=== PATIENT | female | born 1975 ===

== ENCOUNTER 2017-03-25 19:46 | Observation (INO) | payer OTHER ==
[2017-03-25 19:54] VITALS: BP 161/93; PULSE 86; RESP 18; TEMP 97.9; O2SAT 99
[2017-03-25] MEDS ORDERED: Iohexol 240 (50 ml) PO ONE (20:18)
[2017-03-25] MEDS ORDERED: Sodium Chloride 0.9% 1,000 ML IV STA (20:20)
[2017-03-25] MEDS ORDERED: cefTRIAXone (Rocephin) 1 gm Inj IVPB ONE (20:21)
--- NOTE | 2017-03-25 20:23 | ED PDOC ---
HPI: Abdomen Time Seen by Provider: 03/25/17 20:21 Chief Complaint (Nursing): Abdominal Pain Chief Complaint (Provider): abdominal pain History Per: Patient (42 y/o female h/o DM/HTN/Rheumatoid arthritis here with lower abdominal pain radiating to back associated with dysuria x 5 days. Has had cipro x 4 days without improvement. Notes low grade temperature. H/o cxn and exploratory lap in past.) Past Medical History Reviewed: Historical Data, Nursing Documentation, Vital Signs Vital Signs: Last Vital Signs Temp 97.9 F 03/25/17 19:51 Pulse 86 03/25/17 19:51 Resp 18 03/25/17 19:51 BP 161/93 H 03/25/17 19:51 Pulse Ox 99 03/25/17 20:25 - Medical History PMH: Asthma, HTN - Family History Family History: States: Unknown Family Hx - Home Medications Home Medications: Ambulatory Orders Medication Instructions Recorded Dicyclomine [Bentyl] 20 mg PO Q6H PRN #20 tab 06/11/16 Famotidine [Pepcid] 20 mg PO BID #28 tab 06/11/16 - Allergies Allergies/Adverse Reactions: Allergies Allergy/AdvReac Type Severity Reaction Status Date / Time No Known Allergies Allergy Verified 06/11/16 13:59 Review of Systems ROS Statement: Except As Marked, All Systems Reviewed And Found Negative Gastrointestinal: Positive for: Abdominal Pain Physical Exam - Reviewed Nursing Documentation Reviewed: Yes Vital Signs Reviewed: Yes - Physical Exam Appears: Positive for: Well, Non-toxic, No Acute Distress Head Exam: Positive for: ATRAUMATIC, NORMAL INSPECTION, NORMOCEPHALIC Skin: Positive for: Normal Color, Warm, DRY Eye Exam: Positive for: EOMI, Normal appearance, PERRL ENT: Positive for: Normal ENT Inspection Neck: Positive for: Normal, Painless ROM Cardiovascular/Chest: Positive for: Regular Rate, Rhythm Respiratory: Positive for: CNT, Normal Breath Sounds Gastrointestinal/Abdominal: Positive for: Normal Exam, Bowel Sounds, Soft, Tenderness (tender ruq/luq/ lower abdomen.) Back: Positive for: Normal Inspection, L CVA Tenderness, R CVA Tenderness Extremity: Positive for: Normal ROM Neurologic/Psych: Positive for: Alert, Oriented - Laboratory Results Result Diagrams: 03/25/17 21:20 03/25/17 21:35 - ECG O2 Sat by Pulse Oximetry: 99 ED OBSERVATION Date of observation admission: 03/25/17 Time of observation admission: 20:20 - Observation admission statement Patient is being placed in observation because:: evaluation of abdominal pain - Goals of Observation Goals of observation are:: investigation of cause of abdominal pain treatment/improvement of abdominal pain - Progress Note Progress Note: 03/25/17 20:24 Morphine 4mg iv x 1 dose zofran 4 mg iv x 1 dose NS 1 liter wide open Rocephin 1 gm iv x 1 dose for presumptive pyelonephritis. Patient states her pmd has given her rx for CT abdomen/pelvis for evaluation of pain. Will prep for CT abd/pelvis 03/26/17 01:41 ct abd/pelvis: Lymph nodes: No enlarged lymph nodes. IMPRESSION: 1. 2 mm nonobstructing left renal stone. 2. Normal appendix. 3. 2.5 cm mildly dense right adnexal cyst, potentially a hemorrhagic cyst. Consider correlation with ultrasound if needed. 4. Hepatic steatosis and hepatomegaly. Thank you for allowing us to participate in the care of your patient. Dictated and Authenticated by: Zhang Rousseau MD Disposition - Clinical Impression Clinical Impression: Complicated UTI (urinary tract infection) - Patient ED Disposition Is Patient to be Admitted: No - Disposition Disposition: Routine/Home Disposition Time: 01:42 Condition: FAIR
[2017-03-25] MEDS ORDERED: Iohexol 240 (50 ml) ONE (21:03)
[2017-03-25] MEDS ORDERED: cefTRIAXone (Rocephin) 1 gm Inj ONE (21:04)
[2017-03-25 21:39] LABS: BASO % 0.5 % (0.0-2.0); EOS # 0.3 K/uL (0.0-0.7); HEMATOCRIT 37.1 % (34.0-47.0); LYMPH # 3.2 K/uL (1.0-4.3); LYMPH % 33.2 % (20.0-40.0); MEAN CELL VOLUME 73.7 fl (81.0-99.0); MEAN CORPUSCULAR HEMOGLOBIN 23.8 pg (27.0-31.0); MEAN CORPUSCULAR HGB CONC 32.3 g/dL (33.0-37.0); MONO # 0.6 K/uL (0.0-0.8); MONO % 5.8 % (0.0-10.0); NEUT # 5.5 K/uL (1.8-7.0); NEUT % 57.5 % (50.0-75.0); RED CELL DISTRIBUTION WIDTH 13.8 % (11.5-14.5); WHITE BLOOD COUNT 9.7 K/uL (4.8-10.8)
[2017-03-25 21:47] LABS: URINE BILIRUBIN NEGATIVE (NEGATIVE); URINE BLOOD SMALL (NEGATIVE); URINE COLOR AMBER (YELLOW); URINE GLUCOSE (UA) NEG (Normal); URINE KETONE NEGATIVE (NEGATIVE); URINE LEUKOCYTE ESTERASE TRACE Leu/uL (Negative); URINE PROTEIN NEGATIVE (NEGATIVE); URINE UROBILINOGEN 0.2-1.0 mg/dL (0.2-1.0)
[2017-03-25 21:51] LABS: ALB/GLOB RATIO 1.4 (1.0-2.1); ALKALINE PHOSPHATASE 81 U/L (38-126); ALT/SGPT 47 U/L (9-52); AST/SGOT 37 U/L (14-36); BILIRUBIN,TOTAL 0.6 mg/dl (0.2-1.3); BLOOD UREA NITROGEN 9 mg/dl (7-17); CALCIUM 9.5 mg/dL (8.4-10.2); CARBON DIOXIDE 26 mmol/L (22-30); CHLORIDE 100 mmol/L (98-107); GFR AFRICAN-AMERICAN > 60; GLUCOSE,RANDOM 184 mg/dL (65-105); LIPASE 89 U/L (23-300); POTASSIUM 3.7 MMOL/L (3.6-5.0); SODIUM 139 mmol/l (132-148); TOTAL PROTEIN 7.8 G/DL (6.3-8.2)
[2017-03-25 21:57] LABS: RBC URINE 4 /hpf (0-3); WBC URINE 8 /hpf (0-5)
[2017-03-25 21:58] LABS: URINE BACTERIA MOD (<OCC); URINE CALCIUM OXALATE CRYSTALS FEW /hpf (<OCC)
[2017-03-25] MEDS ORDERED: Iohexol 300 100 ML IJ ONE (23:41)
[2017-03-25] MEDS ORDERED: Sodium Chloride 0.9% 50 ML IV ONE (23:41)
--- NOTE | 2017-03-26 08:43 | CT ---
PROCEDURE: CT Abdomen and Pelvis with oral and IV contrast. HISTORY: diffuse abdominal; evaluate gallbladder/appendix COMPARISON: None available. TECHNIQUE: Contiguous axial images of the abdomen and pelvis. Oral and IV contrast was administered. Coronal and Sagittal reformats generated and reviewed. Contrast dose: 95 mL Omnipaque 300 Radiation dose: Total exam DLP = 968.93 mGy-cm. This CT exam was performed using one or more of the following dose reduction techniques: Automated exposure control, adjustment of the mA and/or kV according to patient size, and/or use of iterative reconstruction technique. FINDINGS: LOWER THORAX: No visible consolidation, pleural effusion, or pneumothorax. LIVER: Subtle 10 mm enhancing focus within the left hepatic lobe (series 3, image 33), indeterminate. Subtle 7 mm right hepatic lobe enhancing focus (series 3, image 34), indeterminate. Hepatomegaly. Hypoattenuation of the liver compatible with hepatic steatosis. GALLBLADDER AND BILE DUCTS: Unremarkable. PANCREAS: Unremarkable. No mass. No ductal dilatation. SPLEEN: Unremarkable. No splenomegaly. ADRENALS: Unremarkable. KIDNEYS AND URETERS: The kidneys enhance symmetrically. No hydronephrosis or obstructing renal calculus. 2 mm nonobstructing left renal calculus. BLADDER: The urinary bladder appears unremarkable. REPRODUCTIVE: Uterus is present. 2.5 cm probable right ovarian cyst. APPENDIX: The appendix appears within normal limits of caliber. No secondary signs of acute appendicitis. BOWEL: The stomach is nondistended. The bowel loops appear within normal limits of caliber without evidence of intestinal obstruction. PERITONEUM: No significant free fluid. No definite free air. LYMPH NODES: No bulky lymphadenopathy identified. VASCULATURE: No aortic aneurysm. BONES: No acute osseous abnormality is detected. OTHER FINDINGS: None. IMPRESSION: Subtle enhancing 10 mm left hepatic lobe and 7 mm right hepatic lobe foci, indeterminate. Recommend clinical correlation including with prior outside imaging if available. If no prior imaging is available characterizing these foci suggest dedicated CT or MRI for further characterization. Hepatic steatosis. Hepatomegaly. Nonobstructing 2 mm left renal calculus. 2.5 cm probable right ovarian cyst. Suggest further evaluation with ultrasound if indicated. Study has been marked for PA review. Preliminary impression was provided by virtual radiologic.
== END 2017-03-26 01:41 | disposition home or self-care (01) ==
LOC: H.ER 19:46 → H.EROBSV 20:25
PROVIDERS: ADMIT Emergency Medicine; ATTEND Emergency Medicine
DX: N39.0 Urinary tract infection, site not specified (principal); N20.0 Calculus of kidney; K76.0 Fatty (change of) liver, not elsewhere classified; R16.0 Hepatomegaly, not elsewhere classified; J45.909 Unspecified asthma, uncomplicated; I10 Essential (primary) hypertension; M06.9 Rheumatoid arthritis, unspecified; E11.9 Type 2 diabetes mellitus without complications
CPT/HCPCS: 74177; 80053; 81003; 81025; 83690; 85025; 87040; 87086; 87491; 87591; 96374; 96375; 99282; G0378; J0696; J2270; J2405; J7040; Q9966; Q9967

== ENCOUNTER 2017-12-10 18:16 | Emergency (ER) | payer MEDICAID, OTHER ==
[2017-12-10 19:29] VITALS: O2SAT 100
[2017-12-10] MEDS ORDERED: Sodium Chloride 0.9% 1,000 ML IV STA (20:49)
--- NOTE | 2017-12-10 20:55 | ED PDOC ---
HPI: Back Time Seen by Provider: 12/10/17 20:33 Chief Complaint (Nursing): Back Pain Chief Complaint (Provider): Back pain History Per: Patient History/Exam Limitations: no limitations Onset/Duration Of Symptoms: Days (couple of days) Additional Complaint(s): 42 year old female presented to the ED complaining of back pain radiating to the abdomen for a couple of days. Patient reports pain is worse with movement and breathing and took ibuprofen earlier today with no relief. Patient states she has chills and nausea secondary to pain. She denies dysuria, diarrhea, vomiting, and fever. PCP: Fredo Castro Past Medical History Reviewed: Historical Data, Nursing Documentation, Vital Signs Vital Signs: Last Vital Signs Temp 98.5 F 12/10/17 19:26 Pulse 84 12/10/17 19:26 Resp 16 12/10/17 19:26 BP 147/97 H 12/10/17 19:26 Pulse Ox 100 12/10/17 19:26 - Medical History PMH: Arthritis, Asthma, Diabetes, HTN - Surgical History Surgical History: (x3) - Family History Family History: States: Unknown Family Hx - Social History Current smoker - smoking cessation education provided: No Alcohol: None Drugs: Denies - Home Medications Home Medications: Ambulatory Orders Medication Instructions Recorded Dicyclomine [Bentyl] 20 mg PO Q6H PRN #20 tab 06/11/16 Famotidine [Pepcid] 20 mg PO BID #28 tab 06/11/16 Cephalexin [Keflex] 500 mg PO QID #28 capsule 03/26/17 Ibuprofen [Motrin] 600 mg PO Q8 PRN #12 tab 03/26/17 Cyclobenzaprine [Cyclobenzaprine 10 mg PO TID PRN #20 tab 12/10/17 HCl] Naproxen [Naprosyn] 500 mg PO BID #20 tab 12/10/17 traMADol [Ultram] 50 mg PO QID PRN #20 tab 12/10/17 - Allergies Allergies/Adverse Reactions: Allergies Allergy/AdvReac Type Severity Reaction Status Date / Time No Known Allergies Allergy Verified 06/11/16 13:59 Review of Systems ROS Statement: Except As Marked, All Systems Reviewed And Found Negative Constitutional: Positive for: Chills. Negative for: Fever Gastrointestinal: Positive for: Nausea, Abdominal Pain. Negative for: Vomiting , Diarrhea Genitourinary Female: Negative for: Dysuria Musculoskeletal: Positive for: Back Pain Physical Exam - Reviewed Nursing Documentation Reviewed: Yes Vital Signs Reviewed: Yes - Physical Exam Appears: Positive for: Non-toxic, No Acute Distress Head Exam: Positive for: ATRAUMATIC, NORMOCEPHALIC Skin: Positive for: Normal Color, Warm, Dry Eye Exam: Positive for: Normal appearance Neck: Positive for: Normal, Painless ROM Cardiovascular/Chest: Positive for: Regular Rate, Rhythm. Negative for: Murmur Respiratory: Positive for: Normal Breath Sounds. Negative for: Wheezing, Respiratory Distress Gastrointestinal/Abdominal: Positive for: Tenderness (Left upper quadrant tenderness) Back: Positive for: L CVA Tenderness. Negative for: R CVA Tenderness Extremity: Positive for: Normal ROM Neurologic/Psych: Positive for: Alert, Oriented. Negative for: Motor/Sensory Deficits - Laboratory Results Result Diagrams: 12/10/17 22:00 12/10/17 22:00 Urine POC: Negative Urine dip results: Positive for: Blood (moderate). Negative for: Leukocyte Esterase, Nitrate, Ketones, Glucose, Bilirubin, Protein - ECG Interpretation Of ECG: Normal sinus rhythm 64 bpm, no acute changes, reviewed by PA and ED attending O2 Sat by Pulse Oximetry: 100 (RA) Pulse Ox Interpretation: Normal - Other Rad CXR X-Ray: Interpreted by Me, Viewed By Me X-Ray Interpretation: no acute finding CT abd and pelvis without contrast X-Ray: Read By Radiologist X-Ray Interpretation: see below Medical Decision Making Medical Decision Making: Initial Impression: 42 year old female with flank pain radiating to the back Initial Plan: ECG CMP Lipase Troponin Urine dip Urine CBC D Dimer Chest X-ray Toradol 30mg IV Sodium Chloride 1000mL IV Zofran 4mg IV Patient reports no improvement pain after Toradol was given, 4 mg IV morphine administered. CT: FINDINGS: Limitations: Lack of intravenous contrast. Lung bases: No acute findings. ABDOMEN: Liver: Fatty infiltration with focal sparing. Few rounded relatively hyperdense lesions, up to 1.0 cm, grossly stable. Gallbladder and bile ducts: Calcified gallstones. No significant ductal dilation. Pancreas: Unremarkable. No ductal dilation. Spleen: No splenomegaly. Adrenals: No mass. Kidneys and ureters: Small calculus within LEFT kidney. No hydronephrosis. Stomach and bowel: No definite mural thickening. No obstruction. PELVIS: Appendix: Normal caliber. No inflammation. Bladder: Unremarkable. No stones. Reproductive: Unremarkable as visualized. ABDOMEN and PELVIS: Soft tissues: Tiny umbilical hernia containing fat. Vasculature: Minimal atherosclerotic disease of iliac arteries. No aneurysm. Lymph nodes: No pathologically enlarged lymph nodes. IMPRESSION: 1. Nonobstructing renal calculus. 2. Liver lesions, incompletely characterized. Recommend nonemergent MRI. 3. Incidental/non-acute findings are described above. Patient is aware of all diagnostic testing results, all questions answered. Morphine did help but pain is now coming back, 5 mg PO valium given along with 50 mg PO tramadol. Prescriptions given for Naprosyn, Flexeril and tramadol. Patient was advised to rest and avoid heavy lifting. Advised follow-up with primary doctor next week or return any time if acutely worse Scribe Attestation: Documented by Ruperto Tucker acting as a scribe for Dhara OCONNOR. Provider Scribe Attestation: All medical record entries made by the Scribe were at my direction and personally dictated by me. I have reviewed the chart and agree that the record accurately reflects my personal performance of the history, physical exam, medical decision making, and the department course for this patient. I have also personally directed, reviewed, and agree with the discharge instructions and disposition. Disposition - Clinical Impression Clinical Impression: Back strain - Patient ED Disposition Is Patient to be Admitted: No Counseled Patient/Family Regarding: Studies Performed, Diagnosis, Need For Followup, Rx Given - Disposition Referrals: [facility] [Outside] Disposition: Routine/Home Disposition Time: 23:36 Condition: IMPROVED Additional Instructions: Rest as much as possible and avoid heavy lifting. Take prescription meds as directed as needed for pain. Follow-up with primary doctor or return if worse. Prescriptions: Cyclobenzaprine [Cyclobenzaprine HCl] 10 mg PO TID PRN #20 tab PRN Reason: Muscle Spasm Naproxen [Naprosyn] 500 mg PO BID #20 tab traMADol [Ultram] 50 mg PO QID PRN #20 tab PRN Reason: Pain, Moderate (4-7) Instructions: Low Back Pain in Adults, Muscle Strain, Back Exercises Forms: [employer] (Romanian), [facility] ED School/Work Excuse Results - Lab Results Lab Results: 12/10/17 12/10/17 12/10/17 22:00 22:00 22:00 WBC 8.4 RBC 4.66 Hgb 11.8 L Hct 35.5 MCV 76.1 L D MCH 25.3 L MCHC 33.2 RDW 15.2 H Plt Count 338 MPV 7.4 Neut % (Auto) 56.9 Lymph % (Auto) 34.1 [place] % (Auto) 5.4 Eos % (Auto) 2.8 Baso % (Auto) 0.8 Neut # (Auto) 4.8 Lymph # (Auto) 2.9 [place] # (Auto) 0.5 Eos # (Auto) 0.2 Baso # (Auto) 0.1 D-Dimer, Quantitative 144 Sodium 140 Potassium 3.6 Chloride 102 Carbon Dioxide 28 Anion Gap 14 BUN 9 Creatinine 0.5 L Est GFR ( Amer) > 60 Est GFR (Non-Af Amer) > 60 Random Glucose 115 H Calcium 9.0 Total Bilirubin 0.7 AST 26 ALT 33 Alkaline Phosphatase 68 Troponin I < 0.0120 Total Protein 7.6 Albumin 4.1 Globulin 3.5 Albumin/Globulin Ratio 1.2 Lipase 74
[2017-12-10 22:15] LABS: BASO # 0.1 K/uL (0.0-0.2); BASO % 0.8 % (0.0-2.0); EOS # 0.2 K/uL (0.0-0.7); EOS % 2.8 % (0.0-4.0); HEMOGLOBIN 11.8 g/dL (12.0-16.0); LYMPH # 2.9 K/uL (1.0-4.3); LYMPH % 34.1 % (20.0-40.0); MEAN CORPUSCULAR HEMOGLOBIN 25.3 pg (27.0-31.0); MEAN CORPUSCULAR HGB CONC 33.2 g/dL (33.0-37.0); MEAN PLATELET VOLUME 7.4 fl (7.2-11.7); MONO # 0.5 K/uL (0.0-0.8); MONO % 5.4 % (0.0-10.0); NEUT # 4.8 K/uL (1.8-7.0); NEUT % 56.9 % (50.0-75.0); RBC 4.66 Mil/uL (3.80-5.20); RED CELL DISTRIBUTION WIDTH 15.2 % (11.5-14.5); WHITE BLOOD COUNT 8.4 K/uL (4.8-10.8)
[2017-12-10 22:19] LABS: MEAN CELL VOLUME 76.1 fl (81.0-99.0)
[2017-12-10 22:23] LABS: ALB/GLOB RATIO 1.2 (1.0-2.1); ALBUMIN 4.1 g/dL (3.5-5.0); ALT/SGPT 33 U/L (9-52); AST/SGOT 26 U/L (14-36); BLOOD UREA NITROGEN 9 mg/dl (7-17); GFR AFRICAN-AMERICAN > 60; GFR NON-AFRICAN AMERICAN > 60; LIPASE 74 U/L (23-300)
[2017-12-10] MEDS ORDERED: Morphine 4 MG/ML VIAL ONE (22:36)
--- NOTE | 2017-12-10 23:23 | CT ---
EXAM: CT Abdomen and Pelvis Without Intravenous Contrast CLINICAL HISTORY: 42 years old, female; Pain; Abdominal pain; Flank; Left; Prior surgery; Surgery date: 6+ months; Surgery type: C-sections -3; Additional info: Left flank pain TECHNIQUE: Axial computed tomography images of the abdomen and pelvis without intravenous contrast. All CT scans at this facility use one or more dose reduction techniques, viz.: automated exposure control; ma/kV adjustment per patient size (including targeted exams where dose is matched to indication; i.e. head); or iterative reconstruction technique. Coronal and sagittal reformatted images were created and reviewed. COMPARISON: CT - ABD PELVIS PO IV CONTRAST 2017-03-25 23:45 FINDINGS: Limitations: Lack of intravenous contrast. Lung bases: No acute findings. ABDOMEN: Liver: Fatty infiltration with focal sparing. Few rounded relatively hyperdense lesions, up to 1.0 cm, grossly stable. Gallbladder and bile ducts: Calcified gallstones. No significant ductal dilation. Pancreas: Unremarkable. No ductal dilation. Spleen: No splenomegaly. Adrenals: No mass. Kidneys and ureters: Small calculus within LEFT kidney. No hydronephrosis. Stomach and bowel: No definite mural thickening. No obstruction. PELVIS: Appendix: Normal caliber. No inflammation. Bladder: Unremarkable. No stones. Reproductive: Unremarkable as visualized. ABDOMEN and PELVIS: Intraperitoneal space: No significant fluid collection. No free air. Bones/joints: Probable bone island. No acute fracture. Soft tissues: Tiny umbilical hernia containing fat. Vasculature: Minimal atherosclerotic disease of iliac arteries. No aneurysm. Lymph nodes: No pathologically enlarged lymph nodes. IMPRESSION: 1. Nonobstructing renal calculus. 2. Liver lesions, incompletely characterized. Recommend nonemergent MRI. 3. Incidental/non-acute findings are described above.
[2017-12-10 23:31] VITALS: BP 138/70; PULSE 65; RESP 18; TEMP 98.1
--- NOTE | 2017-12-11 09:50 | RAD ---
HISTORY: left side pain COMPARISON: No prior. TECHNIQUE: Chest PA and lateral FINDINGS: LUNGS: No active pulmonary disease. Rounded radiodensities at the inferior lung regions of the bilateral 8 5th intercostal space levels are suggestive of nipple shadows. Confirmation by nipple marked chest radiography is recommended. PLEURA: No significant pleural effusion identified. No pneumothorax apparent. CARDIOVASCULAR: Normal. OSSEOUS STRUCTURES: No significant abnormalities. VISUALIZED UPPER ABDOMEN: Normal. OTHER FINDINGS: None. IMPRESSION: No acute cardiopulmonary disease appreciable. Rounded radiodensities at the lung bases bilaterally likely reflect nipple shadows. Confirmation by nipple marked chest radiographs is advised. PA review assigned.
--- NOTE | 2017-12-11 15:23 | CARD ---
APPROVED REPORT EKG Measurement Heart [id number] 170P30 [id number] <Conclusion> Normal sinus rhythm Moderate voltage criteria for LVH, may be normal variant Nonspecific T wave abnormality Abnormal ECG
== END 2017-12-10 23:47 | disposition home or self-care (01) ==
LOC: H.ER 18:16
DX: M54.9 Dorsalgia, unspecified (principal); R07.1 Chest pain on breathing; E11.9 Type 2 diabetes mellitus without complications; I10 Essential (primary) hypertension; J45.909 Unspecified asthma, uncomplicated; K76.0 Fatty (change of) liver, not elsewhere classified; K80.20 Calculus of gallbladder without cholecystitis without obstruction; K42.9 Umbilical hernia without obstruction or gangrene; N20.0 Calculus of kidney
CPT/HCPCS: 71046; 74176; 80053; 81025; 83690; 84484; 85025; 85378; 87086; 93005; 96374; 99283; J1885; J2270; J7030

== ENCOUNTER 2018-03-13 12:27 | Emergency (ER) | payer OTHER ==
[2018-03-13] MEDS ORDERED: Albuterol-Ipratrop 3 mg / 0.5 (3 ml) UD ONE (13:01)
[2018-03-13 13:39] LABS: BASO # 0.1 K/uL (0.0-0.2); BASO % 0.9 % (0.0-2.0); EOS # 0.2 K/uL (0.0-0.7); EOS % 2.6 % (0.0-4.0); HEMOGLOBIN 11.5 g/dL (12.0-16.0); LYMPH # 2.3 K/uL (1.0-4.3); LYMPH % 30.8 % (20.0-40.0); MEAN CELL VOLUME 74.6 fl (81.0-99.0); MEAN CORPUSCULAR HEMOGLOBIN 25.3 pg (27.0-31.0); MEAN CORPUSCULAR HGB CONC 33.9 g/dL (33.0-37.0); MEAN PLATELET VOLUME 7.1 fl (7.2-11.7); MONO # 0.4 K/uL (0.0-0.8); MONO % 5.5 % (0.0-10.0); NEUT # 4.4 K/uL (1.8-7.0); NEUT % 60.2 % (50.0-75.0); RBC 4.54 Mil/uL (3.80-5.20); RED CELL DISTRIBUTION WIDTH 14.4 % (11.5-14.5); WHITE BLOOD COUNT 7.3 K/uL (4.8-10.8)
[2018-03-13 13:43] LABS: SQUAMOUS EPITHIAL < 1 /hpf (0-5); URINE BACTERIA RARE (<OCC); URINE BILIRUBIN NEGATIVE (NEGATIVE); URINE BLOOD SMALL (NEGATIVE); URINE CLARITY SLIGHTY-CLOUDY (Clear); URINE COLOR YELLOW (YELLOW); URINE GLUCOSE (UA) NEG (Normal); URINE LEUKOCYTE ESTERASE NEG Leu/uL (Negative); URINE PROTEIN NEGATIVE (NEGATIVE); URINE UROBILINOGEN 0.2-1.0 mg/dL (0.2-1.0)
[2018-03-13 13:46] LABS: PROTHROMBIN TIME 11.3 Seconds (9.8-13.1)
[2018-03-13 13:52] LABS: ALB/GLOB RATIO 1.5 (1.0-2.1); ALBUMIN 4.2 g/dL (3.5-5.0); ALT/SGPT 38 U/L (9-52); AST/SGOT 25 U/L (14-36); BLOOD UREA NITROGEN 8 mg/dl (7-17); CALCIUM 8.7 mg/dL (8.4-10.2); GFR NON-AFRICAN AMERICAN > 60
[2018-03-13 13:55] LABS: D DIMER < 200 ng/mlDDU (0-230)
--- NOTE | 2018-03-13 14:12 | CT ---
Date of service: 03/13/2018 PROCEDURE: CT HEAD WITHOUT CONTRAST. HISTORY: JACINTO COMPARISON: None available. TECHNIQUE: Axial computed tomography images were obtained through the head/brain without intravenous contrast. Radiation dose: Total exam DLP = 828.35 mGy-cm. This CT exam was performed using one or more of the following dose reduction techniques: Automated exposure control, adjustment of the mA and/or kV according to patient size, and/or use of iterative reconstruction technique. FINDINGS: HEMORRHAGE: No acute parenchymal, subarachnoid or extra-axial hemorrhage. BRAIN: No mass effect or edema. No atrophy or chronic microvascular ischemic changes. VENTRICLES: Unremarkable. No hydrocephalus. CALVARIUM: Unremarkable. PARANASAL SINUSES: Unremarkable as visualized. No significant inflammatory changes. MASTOID AIR CELLS: The mastoid air complexes are slightly underpneumatized and sclerotic. OTHER FINDINGS: There appears to be mild bilateral exophthalmos ; clinical correlation with ophthalmologic examination recommended. IMPRESSION: No acute intracranial hemorrhage.
--- NOTE | 2018-03-13 14:19 | ED PDOC ---
HPI: Hypertension/Hypotension Time Seen by Provider: 03/13/18 12:51 Chief Complaint (Nursing): High Blood Pressure Chief Complaint (Provider): MARGE salazar History Per: Patient History/Exam Limitations: no limitations Onset/Duration Of Symptoms: Hrs (today) Additional Complaint(s): Carolyn Tan, a 42 year old female with past medical history of hypertension, presents to the emergency department with a headache, shortness of breath and back pain. Patient states she woke up not feeling well and took her blood pressure which was 17/100 and took amlodipine. She reports not taking her losaratam because she does not like how it makes her feel. Patient denies chest pain or palpitations. No further medical complaints. Past Medical History Reviewed: Historical Data, Nursing Documentation, Vital Signs Vital Signs: Last Vital Signs Temp 98.4 F 03/13/18 12:31 Pulse 81 03/13/18 12:31 Resp 17 03/13/18 12:31 BP 173/92 H 03/13/18 12:31 Pulse Ox 99 03/13/18 12:31 - Medical History PMH: Arthritis, Asthma, Diabetes, HTN - Surgical History Surgical History: (x3) - Family History Family History: States: Unknown Family Hx - Home Medications Home Medications: Ambulatory Orders Medication Instructions Recorded Dicyclomine [Bentyl] 20 mg PO Q6H PRN #20 tab 06/11/16 Famotidine [Pepcid] 20 mg PO BID #28 tab 06/11/16 Cephalexin [Keflex] 500 mg PO QID #28 capsule 03/26/17 Ibuprofen [Motrin] 600 mg PO Q8 PRN #12 tab 03/26/17 Cyclobenzaprine [Cyclobenzaprine 10 mg PO TID PRN #20 tab 12/10/17 HCl] Naproxen [Naprosyn] 500 mg PO BID #20 tab 12/10/17 traMADol [Ultram] 50 mg PO QID PRN #20 tab 12/10/17 - Allergies Allergies/Adverse Reactions: Allergies Allergy/AdvReac Type Severity Reaction Status Date / Time No Known Allergies Allergy Verified 06/11/16 13:59 Review of Systems ROS Statement: Except As Marked, All Systems Reviewed And Found Negative Cardiovascular: Negative for: Chest Pain, Palpitations Respiratory: Negative for: Shortness of Breath Musculoskeletal: Positive for: Back Pain Neurological: Positive for: Headache Physical Exam - Reviewed Nursing Documentation Reviewed: Yes Vital Signs Reviewed: Yes - Physical Exam Appears: Positive for: Well, Non-toxic, No Acute Distress (eating food) Head Exam: Positive for: ATRAUMATIC, NORMAL INSPECTION, NORMOCEPHALIC Skin: Positive for: Normal Color, Warm, DRY Eye Exam: Positive for: EOMI, Normal appearance, PERRL ENT: Positive for: Normal ENT Inspection Neck: Positive for: Normal, Painless ROM Cardiovascular/Chest: Positive for: Regular Rate, Rhythm Respiratory: Positive for: Normal Breath Sounds. Negative for: Respiratory Distress Gastrointestinal/Abdominal: Positive for: Normal Exam, Soft Back: Positive for: Normal Inspection Extremity: Positive for: Normal ROM Neurologic/Psych: Positive for: Alert, Oriented - Laboratory Results Result Diagrams: 03/13/18 13:36 03/13/18 13:36 - ECG O2 Sat by Pulse Oximetry: 99 (RA) Pulse Ox Interpretation: Normal Medical Decision Making Medical Decision Making: Time: 12:51 Initial Impression: elevated blood pressure, headache Initial Plan: --CT head w/o contrast --EKG --CMP --ED urine --ED urine dipstick --CBC w/ differential --D Dimer --PTT --Prothrombin time --urinalysis Time: 14:[address] FINDINGS: HEMORRHAGE: No acute parenchymal, subarachnoid or extra-axial hemorrhage. BRAIN: No mass effect or edema. No atrophy or chronic microvascular ischemic changes. VENTRICLES: Unremarkable. No hydrocephalus. CALVARIUM: Unremarkable. PARANASAL SINUSES: Unremarkable as visualized. No significant inflammatory changes. MASTOID AIR CELLS: The mastoid air complexes are slightly underpneumatized and sclerotic. OTHER FINDINGS: There appears to be mild bilateral exophthalmos ; clinical correlation with ophthalmologic examination recommended. IMPRESSION: No acute intracranial hemorrhage. Scribe Attestation: Documented by Debbie Mensah, acting as a scribe for Latricia Molina MD. Provider Scribe Attestation: All medical record entries made by the Scribe were at my direction and personally dictated by me. I have reviewed the chart and agree that the record accurately reflects my personal performance of the history, physical exam, medical decision making, and the department course for this patient. I have also personally directed, reviewed, and agree with the discharge instructions and disposition. Disposition - Disposition
--- NOTE | 2018-03-13 15:57 | RAD ---
Date of service: 03/13/2018 HISTORY: SOB COMPARISON: Comparison chest 12/10/2017 TECHNIQUE: Chest PA and lateral FINDINGS: LUNGS: Slightly increased and coarse interstitial markings with a few scattered peribronchial cuffing changes. Rule out sequela of reactive/inflammatory airway disease or viral illness. PLEURA: No significant pleural effusion identified. No pneumothorax apparent. CARDIOVASCULAR: Normal. OSSEOUS STRUCTURES: No significant abnormalities. VISUALIZED UPPER ABDOMEN: Normal. OTHER FINDINGS: None. IMPRESSION: Slightly increased and coarse interstitial markings with a few scattered peribronchial cuffing changes. Rule out sequela of reactive/inflammatory airway disease or viral illness.
[2018-03-13 16:16] VITALS: BP 138/75; PULSE 71; RESP 16; TEMP 98.5; O2SAT 98
--- NOTE | 2018-03-13 21:44 | CARD ---
APPROVED REPORT Date of service: 03/13/2018 EKG Measurement Heart [id number] <Conclusion> Normal sinus rhythm Minimal voltage criteria for LVH, may be normal variant Nonspecific ST and T wave abnormality Prolonged QT Abnormal ECG
== END 2018-03-13 16:13 | disposition home or self-care (01) ==
LOC: H.ER 12:27
DX: I10 Essential (primary) hypertension (principal); R51 Headache

== ENCOUNTER 2018-05-06 01:48 | Emergency (ER) | payer OTHER ==
[2018-05-06 02:06] VITALS: RESP 18; TEMP 98; O2SAT 100
[2018-05-06] MEDS ORDERED: Oxycodone/Acetaminophen 5/325 mg Tab PO ONE (02:43)
--- NOTE | 2018-05-06 02:47 | ED PDOC ---
HPI: Dental Pain/Injury Time Seen by Provider: 05/06/18 02:34 Chief Complaint (Nursing): Dental Pain Chief Complaint (Provider): toothache History Per: Patient History/Exam Limitations: no limitations Onset/Duration Of Symptoms: Hrs (12), Waxing/Waning Current Symptoms Are (Timing): Better Additional Complaint(s): 43 y/o female presents for evaluation of left lower toothache x 12 hours. Patient states she took a Tylenol#3 at 21:00 with little improvement. Patient states blood pressure at home was elevated secondary to pain so she became worried. Denies fever, headache, dizziness, nausea/vomiting, difficulty swallowing. Past Medical History Reviewed: Historical Data, Nursing Documentation, Vital Signs Vital Signs: Last Vital Signs Temp 98.0 F 05/06/18 02:02 Pulse 71 05/06/18 02:02 Resp 18 05/06/18 02:02 BP 149/94 H 05/06/18 02:23 Pulse Ox 100 05/06/18 02:02 - Medical History PMH: Arthritis, Asthma, Diabetes, HTN - Surgical History Surgical History: (x3) - Family History Family History: States: Unknown Family Hx - Home Medications Home Medications: Ambulatory Orders Medication Instructions Recorded Dicyclomine [Bentyl] 20 mg PO Q6H PRN #20 tab 06/11/16 Famotidine [Pepcid] 20 mg PO BID #28 tab 06/11/16 Cephalexin [Keflex] 500 mg PO QID #28 capsule 03/26/17 Ibuprofen [Motrin] 600 mg PO Q8 PRN #12 tab 03/26/17 Cyclobenzaprine [Cyclobenzaprine 10 mg PO TID PRN #20 tab 12/10/17 HCl] Naproxen [Naprosyn] 500 mg PO BID #20 tab 12/10/17 traMADol [Ultram] 50 mg PO QID PRN #20 tab 12/10/17 Naproxen [Naprosyn] 500 mg PO BID PRN #15 tablet 03/13/18 Amoxicillin [Amoxil 500 mg Cap] 500 mg PO TID #14 cap 05/06/18 Naproxen [Naprosyn] 500 mg PO Q12 PRN #20 tablet 05/06/18 oxyCODONE/Acetaminophen [Percocet 1 ea PO Q6 PRN #5 tab 05/06/18 5/325 mg Tab] - Allergies Allergies/Adverse Reactions: Allergies Allergy/AdvReac Type Severity Reaction Status Date / Time No Known Allergies Allergy Verified 05/06/18 02:02 Review of Systems ROS Statement: Except As Marked, All Systems Reviewed And Found Negative ENT: Positive for: Mouth Pain (left lower) Physical Exam - Reviewed Nursing Documentation Reviewed: Yes Vital Signs Reviewed: Yes - Physical Exam Appears: Positive for: Well, Non-toxic, No Acute Distress Head Exam: Positive for: ATRAUMATIC, NORMAL INSPECTION, NORMOCEPHALIC Skin: Positive for: Normal Color ENT: Positive for: Other (+ dental caries left lower first and second molars. + tenderness left lower second molar with + surrounding gingival tenderness. No abscess formation, facial edema/erythema noted. Airway patent) Neck: Positive for: Normal, Painless ROM Cardiovascular/Chest: Positive for: Regular Rate, Rhythm Respiratory: Positive for: Normal Breath Sounds Neurologic/Psych: Positive for: Alert, Oriented (x3) - ECG O2 Sat by Pulse Oximetry: 100 - Progress ED Course And Treament: Toradol IM, percocet PO, Amox PO On re-eval, patient states pain improving. BP improved. Patient educated on findings, discharged with rx Naproxen, Amoxicillin, Percocet Advised follow up Dentist within 2 days Return precautions given Disposition - Clinical Impression Clinical Impression: Toothache - Patient ED Disposition Is Patient to be Admitted: No Counseled Patient/Family Regarding: Diagnosis, Need For Followup, Rx Given - Disposition Disposition: Routine/Home Disposition Time: 03:37 Condition: IMPROVED Prescriptions: Amoxicillin [Amoxil 500 mg Cap] 500 mg PO TID #14 cap Naproxen [Naprosyn] 500 mg PO Q12 PRN #20 tablet PRN Reason: Pain, Moderate (4-7) oxyCODONE/Acetaminophen [Percocet 5/325 mg Tab] 1 ea PO Q6 PRN #5 tab PRN Reason: Pain, Severe (8-10) Instructions: Dental Pain Forms: [employer] (Turkmen)
[2018-05-06 03:35] VITALS: BP 135/81; PULSE 78
== END 2018-05-06 03:41 | disposition home or self-care (01) ==
LOC: H.ER 01:48
DX: K08.89 Other specified disorders of teeth and supporting structures (principal); E11.9 Type 2 diabetes mellitus without complications; I10 Essential (primary) hypertension
CPT/HCPCS: 81025; 96372; 99282; J1885

== ENCOUNTER 2018-06-21 18:21 | Emergency (ER) | payer OTHER ==
[2018-06-21] MEDS ORDERED: Iohexol 240 (50 ml) PO STA (19:27)
[2018-06-21] MEDS ORDERED: Sodium Chloride 0.9% 1,000 ML IV STA (19:29)
[2018-06-21] MEDS ORDERED: Iohexol 240 (50 ml) ONE (19:39)
--- NOTE | 2018-06-21 19:54 | ED PDOC ---
HPI: Abdomen Time Seen by Provider: 06/21/18 19:20 Chief Complaint (Nursing): Abdominal Pain Chief Complaint (Provider): Abdominal Pain History Per: Patient History/Exam Limitations: no limitations Onset/Duration Of Symptoms: Days (LLQ yesterday, left rib pain since yesterday) Current Symptoms Are (Timing): Still Present Additional Complaint(s): 43 year old female with a history of Type 2 diabetes, hypertension, and rheumatoid arthritis presents to the ED with left rib pain since December and LLQ pain onset yesterday. Patient has been seen by her PMD for rib pain and gotten x-rays which were unremarkable. She developed LLQ pain radiating to the left flank yesterday. Patient also reports a fever for which she has been taking Tylenol. Last dose was this afternoon. She has pain with movement but denies any vomiting, constipation, hematuria, dysuria, or history of kidney stones. PMD: Dr. Yoo [facility] Past Medical History Reviewed: Historical Data, Nursing Documentation, Vital Signs Vital Signs: Last Vital Signs Temp 97.5 F L 06/21/18 18:47 Pulse 103 H 06/21/18 18:47 Resp 20 06/21/18 18:47 BP 137/89 06/21/18 18:47 Pulse Ox 98 06/21/18 18:47 - Medical History PMH: Arthritis, Asthma, Diabetes, HTN, Rheumatoid Arthritis - Surgical History Surgical History: (x3) Other surgeries: Bilateral wrist surgery - Family History Family History: States: Unknown Family Hx - Home Medications Home Medications: Ambulatory Orders Medication Instructions Recorded Dicyclomine [Bentyl] 20 mg PO Q6H PRN #20 tab 06/11/16 Famotidine [Pepcid] 20 mg PO BID #28 tab 06/11/16 Ibuprofen [Motrin] 600 mg PO Q8 PRN #12 tab 03/26/17 RX: Cephalexin [Keflex] 500 mg PO QID #28 capsule 03/26/17 Cyclobenzaprine [Cyclobenzaprine 10 mg PO TID PRN #20 tab 12/10/17 HCl] Naproxen [Naprosyn] 500 mg PO BID #20 tab 12/10/17 RX: traMADol [Ultram] 50 mg PO QID PRN #20 tab 12/10/17 Naproxen [Naprosyn] 500 mg PO BID PRN #15 tablet 03/13/18 RX: Amoxicillin [Amoxil 500 mg Cap] 500 mg PO TID #14 cap 05/06/18 RX: Naproxen [Naprosyn] 500 mg PO Q12 PRN #20 tablet 05/06/18 oxyCODONE/Acetaminophen [Percocet 1 ea PO Q6 PRN #5 tab 05/06/18 5/325 mg Tab] - Allergies Allergies/Adverse Reactions: Allergies Allergy/AdvReac Type Severity Reaction Status Date / Time No Known Allergies Allergy Verified 06/21/18 18:47 Review of Systems ROS Statement: Except As Marked, All Systems Reviewed And Found Negative Constitutional: Positive for: Fever Cardiovascular: Positive for: Other (left rib pain ) Gastrointestinal: Positive for: Abdominal Pain (LLQ). Negative for: Nausea, Vomiting, Diarrhea, Constipation Genitourinary Female: Negative for: Dysuria, Hematuria Physical Exam - Reviewed Nursing Documentation Reviewed: Yes Vital Signs Reviewed: Yes - Physical Exam Appears: Positive for: Well, Non-toxic, No Acute Distress Head Exam: Positive for: ATRAUMATIC, NORMOCEPHALIC Skin: Positive for: Normal Color, Warm, Dry Eye Exam: Positive for: EOMI, Normal appearance, PERRL ENT: Positive for: Normal ENT Inspection Neck: Positive for: Normal Cardiovascular/Chest: Positive for: Regular Rate, Rhythm, Other (Left rib tenderness ) Respiratory: Positive for: Normal Breath Sounds. Negative for: Respiratory Distress Gastrointestinal/Abdominal: Positive for: Bowel Sounds (positive), Soft, Tenderness (LLQ ). Negative for: Mass, Guarding, Rebound Extremity: Positive for: Normal ROM (upper and lower) Neurologic/Psych: Positive for: Alert, Oriented (x3) - Laboratory Results Result Diagrams: 06/21/18 19:54 06/21/18 19:54 - ECG O2 Sat by Pulse Oximetry: 98 (RA) Pulse Ox Interpretation: Normal Medical Decision Making Medical Decision Making: Time: 1926 Initial Impression: LLQ abdominal pain, rule out diverticulitis and kidney s tones Initial Plan: --CT Chest, abd, pelvis w/ IV & PO contrast --CMP --CBC with differentials --NS --Omnipaque 50 ml PO --Toradol 30 mg IV --Zofran 4 mg IV --Urine C&S --UA 2328 CT Findings: Chest: The pulmonary arteries are well-opacified with contrast, with no intralum inal filling defects to suggest embolism. The thoracic aorta is unremarkable. There is no pericardial or pleural effusion. The lungs are clear. There is no thoracic lymphadenopathy. The thyroid gland is within normal limits. Abdomen: The spleen, pancreas, kidneys, and adrenal glands are unremarkable. Several tiny densities are seen in the gallbladder. The liver is enlarged measuring 26.5 cm in maximal dimension. Diffuse low attenuation of hepatic parenchyma is noted. No focal hepatic masses are seen. There is no evidence of biliary ductal dilatation. The hepatic and portal veins are patent. The aorta is within normal limits. There is no evidence of abdominal lymphadenopathy or ascites. Pelvis: The bowel is unremarkable, with no obstructive or inflammatory changes. The appendix is normal. The urinary bladder is within normal limits. There is a complex lesion in the left adnexa measuring 1.8 x 1.3 cm. The other pelvic structures appear grossly intact. There is no evidence of pelvic lymphadenopathy or ascites. Bones: There are no suspicious osseous abnormalities seen. Impression: 1. No acute intrathoracic abnormality. No acute infiltrates or effusions. 2. Hepatomegaly with diffuse fatty infiltration of the liver. 3. Cholelithiasis without evidence of acute cholecystitis. 4. No obstructive or inflammatory bowel changes. 5. Hemorrhagic left ovarian cyst. 2335 Patient tolerated PO and labs are benign besides mild chronic anemia. pt aware of CT results. instructed to follow up outpt. pt aware of microscopic hematuria as well. Stable for discharge with instructions to follow up. Scribe Attestation: Documented by Jasmyne Tucker, acting as a scribe for Brit Duff MD Provider Scribe Attestation: All medical record entries made by the Scribe were at my direction and personally dictated by me. I have reviewed the chart and agree that the record accurately reflects my personal performance of the history, physical exam, medical decision making, and the department course for this patient. I have also personally directed, reviewed, and agree with the discharge instructions and disposition. Disposition - Clinical Impression Clinical Impression: Abdominal discomfort, Microscopic hematuria - Patient ED Disposition Is Patient to be Admitted: No Counseled Patient/Family Regarding: Studies Performed, Diagnosis, Need For Followup - Disposition Disposition: Routine/Home Disposition Time: 23:38 Condition: IMPROVED Additional Instructions: follow up with your primary doctor in 1-2 days (Radha crenshaw) take tylenol for pain return to the ED with any worsening or concerning symptoms Instructions: Anemia Caused by Low Iron, Blood in the Urine (Hematuria) in Adults, Stomach Ache and Stomach Upset Forms: [employer] (Ghanaian)
[2018-06-21 19:57] LABS: BASO % 0.2 % (0.0-2.0); EOS # 0.2 K/uL (0.0-0.7); EOS % 2.1 % (0.0-4.0); HEMOGLOBIN 11.8 g/dL (12.0-16.0); LYMPH # 3.2 K/uL (1.0-4.3); LYMPH % 32.8 % (20.0-40.0); MEAN CELL VOLUME 74.1 fl (81.0-99.0); MEAN CORPUSCULAR HEMOGLOBIN 24.1 pg (27.0-31.0); MEAN CORPUSCULAR HGB CONC 32.5 g/dL (33.0-37.0); MEAN PLATELET VOLUME 7.8 fl (7.2-11.7); MONO # 0.6 K/uL (0.0-0.8); MONO % 6.3 % (0.0-10.0); NEUT # 5.7 K/uL (1.8-7.0); NEUT % 58.6 % (50.0-75.0); RBC 4.9 Mil/uL (3.80-5.20); RED CELL DISTRIBUTION WIDTH 15.6 % (11.5-14.5); WHITE BLOOD COUNT 9.8 K/uL (4.8-10.8)
[2018-06-21 20:08] LABS: SQUAMOUS EPITHIAL 1 /hpf (0-5); URINE BACTERIA RARE (<OCC); URINE BILIRUBIN NEGATIVE (NEGATIVE); URINE BLOOD SMALL (NEGATIVE); URINE CALCIUM OXALATE CRYSTALS FEW /hpf (<OCC); URINE CLARITY SLIGHTY-CLOUDY (Clear); URINE COLOR YELLOW (YELLOW); URINE GLUCOSE (UA) NEG (NEGATIVE); URINE LEUKOCYTE ESTERASE NEG Leu/uL (Negative); URINE PROTEIN NEGATIVE (NEGATIVE); URINE UROBILINOGEN 0.2-1.0 mg/dL (0.2-1.0)
[2018-06-21 20:09] LABS: ALB/GLOB RATIO 1.2 (1.0-2.1); ALBUMIN 4.4 g/dL (3.5-5.0); ALT/SGPT 29 U/L (9-52); AST/SGOT 19 U/L (14-36); BLOOD UREA NITROGEN 12 mg/dl (7-17); CALCIUM 9.2 mg/dL (8.4-10.2); GFR NON-AFRICAN AMERICAN > 60
[2018-06-21] MEDS ORDERED: Sodium Chloride 0.9% 50 ML IV ONE (21:43)
[2018-06-21] MEDS ORDERED: Iohexol 300 100 ML IJ ONE (21:43)
[2018-06-22 00:06] VITALS: BP 128/79; PULSE 79; RESP 18; TEMP 98.7
--- NOTE | 2018-06-22 15:35 | CT ---
Date of service: 06/21/2018 PROCEDURE: CT Chest, Abdomen and Pelvis with intravenous contrast HISTORY: Left-sided pain,LLQ pain COMPARISON: None available. TECHNIQUE: Contiguous helical/transaxial sections of the chest abdomen pelvis performed in standard fashion following intravenous injection of approximately 90 cc of Omnipaque 300 contrast material. Additional 2D sagittal and coronal reformats generated. Radiation dose: Total exam DLP = 1300.44 mGy-cm. This CT exam was performed using one or more of the following dose reduction techniques: Automated exposure control, adjustment of the mA and/or kV according to patient size, and/or use of iterative reconstruction technique. FINDINGS: CT CHEST WITH CONTRAST: LUNGS: No acute consolidation or mass. Few small localized semi lunar shaped subpleural nodular densities left and to a lesser degree right lower lobes likely postinflammatory. MEDIASTINUM: Heart size within range of normal. No significant pericardial effusion. Ascending thoracic aorta measures approximately 3.15 cm and descending thoracic aorta measures approximately 2.33 cm. No significant calcified atherosclerotic plaque. Pulmonary trunk measures approximately 2.4 cm. No significant mediastinal or hilar adenopathy. Trachea midline and patent with no significant endo luminal lesions. LYMPH NODES: Unremarkable. PLEURA: Unremarkable. No pneumothorax. No pleural fluid. BONES: Minor multilevel degenerative spondylosis of the thoracic spine. No obvious suspicious lytic or blastic lesions are identified. OTHER FINDINGS: None. CT ABDOMEN AND PELVIS: LIVER: Liver is markedly enlarged measuring nearly 23 cm in CC dimension. Moderate to significant fatty hepatic infiltration. There is a small approximately 11 mm elliptical shaped enhancing lesion left lobe liver that is of uncertain etiology though probably represents a small hemangioma. There is an adjacent smaller approximately 5 mm rounded focus of increased attenuation located just dorsal to the suspected hemangioma as well. Followup nonemergent triple phase CT scan of the liver could be performed further evaluation. GALLBLADDER AND BILE DUCTS: There appear to be a few tiny hyperdense foci seen in the dependent portion of the gallbladder likely representing gravel and/or tiny calculi.. PANCREAS: Pancreas appears unremarkable without masses collections or calcifications. SPLEEN: The spleen exhibits normal size and attenuation pattern without masses collections or calcifications.. ADRENALS: No adrenal lesions.. KIDNEYS AND URETERS: Kidneys demonstrate symmetric nephrograms. No evidence of nephrolithiasis or hydronephrosis. Small approximately 7.7 mm rounded low-attenuation focus seen posterolateral cortex mid pole right kidney which exhibits Hounsfield units in the low 20s likely representing a small hyperdense cyst. Renal ultrasound followup could be performed to confirm.. VASCULATURE: No aortic atherosclerotic calcification or mural plaque present. Unremarkable. No aortic aneurysm. BOWEL: Evaluation of the bowel is somewhat limited due to incomplete opacification. Stomach is partially distended with food debris liquid and air admixed with oral contrast material. Visualized loops of small bowel exhibit normal contour and caliber. No evidence of acute mechanical small bowel obstruction. Moderate amount of stool is seen throughout the cecum and ascending colon with lesser amount in the transverse and descending colon. Findings could represent mid minor localized fecal retention. No definitive evidence of mural wall thickening. APPENDIX: Normal-appearing the appendix.. PERITONEUM: Unremarkable. No free fluid. No free air. Tiny fat containing umbilical hernia LYMPH NODES: Unremarkable. No enlarged lymph nodes. BLADDER: Urinary bladder incompletely distended which in part accounts for thick-walled appearance however correlation with urinalysis recommended to exclude cystitis.. REPRODUCTIVE: Uterus appears unremarkable. Small involuting and or hemorrhagic left ovarian cyst measuring approximately 15.5 mm.. BONES: Mild multilevel degenerative spondylosis of the lumbar spine. No acute compression fractures no retropulsed fragments.. OTHER FINDINGS: None. IMPRESSION: Few small localized semi lunar shaped subpleural nodular densities left and to a lesser degree right lower lobes likely postinflammatory. Marked hepatomegaly with fatty infiltration. Probable small hemangiomas within the left lobe liver; follow-up nonemergent triple phase CT scan of the liver recommended. Cholelithiasis. Small involuting and/or hemorrhagic left ovarian cyst. Note that this report was placed in [facility] review folder for followup
[2018-06-24 00:08] VITALS: O2SAT 98
== END 2018-06-22 00:06 | disposition home or self-care (01) ==
LOC: H.ER 18:21
DX: R10.32 Left lower quadrant pain (principal); E11.9 Type 2 diabetes mellitus without complications; D64.9 Anemia, unspecified; I10 Essential (primary) hypertension; K76.0 Fatty (change of) liver, not elsewhere classified; N83.202 Unspecified ovarian cyst, left side; K80.20 Calculus of gallbladder without cholecystitis without obstruction; M06.9 Rheumatoid arthritis, unspecified; R31.29 Other microscopic hematuria
CPT/HCPCS: 71260; 74177; 80053; 81003; 81025; 85025; 87086; 96360; 99283; J1885; J2405; J7030; Q9966; Q9967

== ENCOUNTER 2018-06-23 10:46 | Emergency (ER) | payer OTHER ==
[2018-06-23] MEDS ORDERED: Sodium Chloride 0.9% 1,000 ML IV STA (11:23)
--- NOTE | 2018-06-23 11:49 | ED PDOC ---
HPI: Abdomen Time Seen by Provider: 06/23/18 11:12 Chief Complaint (Nursing): Abdominal Pain Chief Complaint (Provider): abdominal pain History Per: Patient History/Exam Limitations: no limitations Onset/Duration Of Symptoms: Days (4), Gradual Current Symptoms Are (Timing): Still Present Severity: Moderate Location Of Pain/Discomfort: LLQ, Other (L flank) Quality Of Discomfort: Sharp Associated Symptoms: Nausea, Loss Of Appetite, Urinary Symptoms. denies: Fever, Vomiting, Diarrhea Alleviating Factors: None Additional Complaint(s): 43yo female represents to ED c/o ongoing and worsening LLQ pain radiating to L flank/back. Worsens w/ straining for urination or BM but denies dysuria, fever or weakness. States had history ovarian cyst L side prior requiring surgery. Denies vaginal pain or discharge. Taking tylenol at home w minimal relief. Past Medical History Reviewed: Historical Data, Nursing Documentation, Vital Signs Vital Signs: Last Vital Signs Temp 98.2 F 06/23/18 10:54 Pulse 101 H 06/23/18 10:54 Resp 19 06/23/18 10:54 BP 141/98 H 06/23/18 10:54 Pulse Ox 100 06/23/18 10:54 - Medical History PMH: Arthritis, Asthma, Diabetes, HTN, Rheumatoid Arthritis - Surgical History Surgical History: (x3) - Family History Family History: States: Unknown Family Hx - Living Arrangements Living Arrangements: With Family - Social History Current smoker - smoking cessation education provided: No - Home Medications Home Medications: Ambulatory Orders Medication Instructions Recorded Dicyclomine [Bentyl] 20 mg PO Q6H PRN #20 tab 06/11/16 Famotidine [Pepcid] 20 mg PO BID #28 tab 06/11/16 Ibuprofen [Motrin] 600 mg PO Q8 PRN #12 tab 03/26/17 RX: Cephalexin [Keflex] 500 mg PO QID #28 capsule 03/26/17 Cyclobenzaprine [Cyclobenzaprine 10 mg PO TID PRN #20 tab 12/10/17 HCl] Naproxen [Naprosyn] 500 mg PO BID #20 tab 12/10/17 RX: traMADol [Ultram] 50 mg PO QID PRN #20 tab 12/10/17 Naproxen [Naprosyn] 500 mg PO BID PRN #15 tablet 03/13/18 RX: Amoxicillin [Amoxil 500 mg Cap] 500 mg PO TID #14 cap 05/06/18 RX: Naproxen [Naprosyn] 500 mg PO Q12 PRN #20 tablet 05/06/18 oxyCODONE/Acetaminophen [Percocet 1 ea PO Q6 PRN #5 tab 05/06/18 5/325 mg Tab] - Allergies Allergies/Adverse Reactions: Allergies Allergy/AdvReac Type Severity Reaction Status Date / Time No Known Allergies Allergy Verified 06/21/18 18:47 Review of Systems Constitutional: Negative for: Fever, Chills Cardiovascular: Negative for: Chest Pain, Palpitations Respiratory: Negative for: Cough, Shortness of Breath Gastrointestinal: Positive for: Nausea, Abdominal Pain Genitourinary Female: Positive for: Pelvic Pain. Negative for: Dysuria, Vaginal Discharge Musculoskeletal: Positive for: Back Pain. Negative for: Neck Pain, Shoulder Pain, Leg Pain Skin: Negative for: Rash, Lesions, Jaundice Neurological: Negative for: Weakness, Numbness, Headache, Dizziness Psych: Negative for: Suicidal ideation Physical Exam - Reviewed Nursing Documentation Reviewed: Yes Vital Signs Reviewed: Yes - Physical Exam Appears: Positive for: Well, Non-toxic, No Acute Distress Head Exam: Positive for: ATRAUMATIC, NORMAL INSPECTION, NORMOCEPHALIC Skin: Positive for: Normal Color, Warm, DRY Eye Exam: Positive for: EOMI, Normal appearance, PERRL ENT: Positive for: Normal ENT Inspection Neck: Positive for: Normal, Painless ROM Cardiovascular/Chest: Positive for: Regular Rate, Rhythm Respiratory: Positive for: CNT, Normal Breath Sounds Gastrointestinal/Abdominal: Positive for: Soft, Tenderness (+LLQ and L CVA tenderness) Back: Positive for: L CVA Tenderness Extremity: Positive for: Normal ROM. Negative for: Deformity, Swelling Neurologic/Psych: Positive for: Alert, Oriented. Negative for: Motor/Sensory Deficits - Laboratory Results Result Diagrams: 06/23/18 11:30 06/23/18 11:30 - ECG O2 Sat by Pulse Oximetry: 100 Medical Decision Making Medical Decision Making: CT report from prior ED visit reviewed: Date of service: 06/21/2018 PROCEDURE: CT Chest, Abdomen and Pelvis with intravenous contrast HISTORY: Left-sided pain,LLQ pain COMPARISON: None available. TECHNIQUE: Contiguous helical/transaxial sections of the chest abdomen pelvis performed in standard fashion following intravenous injection of approximately 90 cc of Omnipaque 300 contrast material. Additional 2D sagittal and coronal reformats generated. Radiation dose: Total exam DLP = 1300.44 mGy-cm. This CT exam was performed using one or more of the following dose reduction techniques: Automated exposure control, adjustment of the mA and/or kV according to patient size, and/or use of iterative reconstruction technique. FINDINGS: CT CHEST WITH CONTRAST: LUNGS: No acute consolidation or mass. Few small localized semi lunar shaped subpleural nodular densities left and to a lesser degree right lower lobes likely postinflammatory. MEDIASTINUM: Heart size within range of normal. No significant pericardial effusion. Ascending thoracic aorta measures approximately 3.15 cm and descending thoracic aorta measures approximately 2.33 cm. No significant calcified atherosclerotic plaque. Pulmonary trunk measures approximately 2.4 cm. No significant mediastinal or hilar adenopathy. Trachea midline and patent with no significant endo luminal lesions. LYMPH NODES: Unremarkable. PLEURA: Unremarkable. No pneumothorax. No pleural fluid. BONES: Minor multilevel degenerative spondylosis of the thoracic spine. No obvious suspicious lytic or blastic lesions are identified. OTHER FINDINGS: None. CT ABDOMEN AND PELVIS: LIVER: Liver is markedly enlarged measuring nearly 23 cm in CC dimension. Moderate to significant fatty hepatic infiltration. There is a small approximately 11 mm elliptical shaped enhancing lesion left lobe liver that is of uncertain etiology though probably represents a small hemangioma. There is an adjacent smaller approximately 5 mm rounded focus of increased attenuation located just dorsal to the suspected hemangioma as well. Followup nonemergent triple phase CT scan of the liver could be performed further evaluation. GALLBLADDER AND BILE DUCTS: There appear to be a few tiny hyperdense foci seen in the dependent portion of the gallbladder likely representing gravel and/or tiny calculi.. PANCREAS: Pancreas appears unremarkable without masses collections or calcifications. SPLEEN: The spleen exhibits normal size and attenuation pattern without masses collections or calcifications.. ADRENALS: No adrenal lesions.. KIDNEYS AND URETERS: Kidneys demonstrate symmetric nephrograms. No evidence of nephrolithiasis or hydronephrosis. Small approximately 7.7 mm rounded low-attenuation focus seen posterolateral cortex mid pole right kidney which exhibits Hounsfield units in the low 20s likely representing a small hyperdense cyst. Renal ultrasound followup could be performed to confirm.. VASCULATURE: No aortic atherosclerotic calcification or mural plaque present. Unremarkable. No aortic aneurysm. BOWEL: Evaluation of the bowel is somewhat limited due to incomplete opacification. Stomach is partially distended with food debris liquid and air admixed with oral contrast material. Visualized loops of small bowel exhibit normal contour and caliber. No evidence of acute mechanical small bowel obstruction. Moderate amount of stool is seen throughout the cecum and ascending colon with lesser amount in the transverse and descending colon. Findings could represent mid minor localized fecal retention. No definitive evidence of mural wall thickening. APPENDIX: Normal-appearing the appendix.. PERITONEUM: Unremarkable. No free fluid. No free air. Tiny fat containing umbilical hernia LYMPH NODES: Unremarkable. No enlarged lymph nodes. BLADDER: Urinary bladder incompletely distended which in part accounts for thick-walled appearance however correlation with urinalysis recommended to exclude cystitis.. REPRODUCTIVE: Uterus appears unremarkable. Small involuting and or hemorrhagic left ovarian cyst measuring approximately 15.5 mm.. BONES: Mild multilevel degenerative spondylosis of the lumbar spine. No acute compress ion fractures no retropulsed fragments.. OTHER FINDINGS: None. IMPRESSION: Few small localized semi lunar shaped subpleural nodular densities left and to a lesser degree right lower lobes likely postinflammatory. Marked hepatomegaly with fatty infiltration. Probable small hemangiomas within the left lobe liver; follow-up nonemergent triple phase CT scan of the liver recommended. Cholelithiasis. Small involuting and/or hemorrhagic left ovarian cyst. Note that this report was placed in [facility] review folder for followup --Will check US pelvis and repeat bloodwork, analgesia initiated w IVF bolus Time: 1409 --US ABD/pelvis/transvaginal FINDINGS: UTERUS: Measures 8.9 x 5.2 x 4.6 cm. Anteverted and enlarged. There is a 2.8 x 2.2 x 2.0 cm anterior wall intramural fibroid. ENDOMETRIUM: Measures 9.1 mm in diameter. Unremarkable. CERVIX: There are nabothian cysts in the cervix, the largest measures 1.9 x 2.0 x 0.9 cm. RIGHT OVARY: Measures 1.9 x 1.3 x 0.8 cm. No solid mass. Normal flow. LEFT OVARY: Not visualized. FREE FLUID: There is small amount of free fluid in the left adnexa. OTHER FINDINGS: None. IMPRESSION: The left ovary is not visualized. No adnexal mass or cyst. Small amount of free fluid in the pelvis is likely physiologic. 2.8 x 2.2 x 2.0 cm anterior wall intramural fibroid. Time: 1436 --Case discussed with radiologist, Dr. Imani Ye, who reports that the left ovary was not visualized. He reviewed CT chest/ABD/pelvis of last visit and notes findings are consistent with small left-sided ovarian cyst without evidence of hemorrhage. Recommends repeat CT imaging to visualize the ovaries. US of left kidney and US pelvis/transvag additionally ordered. Time: 1441 --Patient refuses repeat CT to be performed. Time: 1500 --Patient endorsed to Dr. Duff, pending US results with visualization of ovaries. ---- Scribe Attestation: Documented by Kathy Sutton, acting as a scribe for Darrell Main III, DO. Provider Scribe Attestation: All medical record entries made by the Scribe were at my direction and personally dictated by me. I have reviewed the chart and agree that the record accurately reflects my personal performance of the history, physical exam, medical decision making, and the department course for this patient. I have also personally directed, reviewed, and agree with the discharge instructions and disposition. Disposition - Clinical Impression Clinical Impression: Hemorrhagic cyst of left ovary, Microscopic hematuria - Patient ED Disposition Is Patient to be Admitted: Transfer of Care - Disposition Referrals: [facility] [Outside] [facility] [Outside] Disposition: Transfer of Care Disposition Time: 15:15 Condition: IMPROVED Additional Instructions: follow up with [facility] in 1-2 days take tylenol for the pain as needed return to the ED with any worsening or concerning symptoms Instructions: Blood in the Urine (Hematuria), Adult (DC), Ovarian Cyst (DC) Forms: [employer] (Beninese) Patient Signed Over To: Brit Duff
[2018-06-23 11:56] LABS: ALB/GLOB RATIO 1.2 (1.0-2.1); ALBUMIN 4.4 g/dL (3.5-5.0); ALT/SGPT 30 U/L (9-52); AST/SGOT 21 U/L (14-36); BLOOD UREA NITROGEN 10 mg/dl (7-17); CALCIUM 9.1 mg/dL (8.4-10.2); GFR NON-AFRICAN AMERICAN > 60; LIPASE 125 U/L (23-300)
[2018-06-23 12:07] LABS: BASO # 0.1 K/uL (0.0-0.2); BASO % 0.9 % (0.0-2.0); EOS # 0.1 K/uL (0.0-0.7); EOS % 0.9 % (0.0-4.0); HEMOGLOBIN 11.4 g/dL (12.0-16.0); LYMPH # 2.4 K/uL (1.0-4.3); LYMPH % 23.4 % (20.0-40.0); MEAN CELL VOLUME 75.6 fl (81.0-99.0); MEAN CORPUSCULAR HEMOGLOBIN 23.8 pg (27.0-31.0); MEAN CORPUSCULAR HGB CONC 31.5 g/dL (33.0-37.0); MEAN PLATELET VOLUME 7.9 fl (7.2-11.7); MONO # 0.5 K/uL (0.0-0.8); MONO % 4.9 % (0.0-10.0); NEUT # 7.1 K/uL (1.8-7.0); NEUT % 69.9 % (50.0-75.0); NRBC % 0.1 % (0.0-0.0); RBC 4.79 Mil/uL (3.80-5.20); RED CELL DISTRIBUTION WIDTH 15.4 % (11.5-14.5); WHITE BLOOD COUNT 10.2 K/uL (4.8-10.8)
[2018-06-23 12:08] LABS: SQUAMOUS EPITHIAL < 1 /hpf (0-5); URINE BILIRUBIN NEGATIVE (NEGATIVE); URINE BLOOD SMALL (NEGATIVE); URINE CLARITY SLIGHTY-CLOUDY (Clear); URINE COLOR YELLOW (YELLOW); URINE GLUCOSE (UA) 50 mg/dL (NEGATIVE); URINE LEUKOCYTE ESTERASE NEG Leu/uL (Negative); URINE PROTEIN NEGATIVE (NEGATIVE); URINE UROBILINOGEN 0.2-1.0 mg/dL (0.2-1.0)
--- NOTE | 2018-06-23 14:12 | US ---
Date of service: 06/23/2018 HISTORY: L ovarian cyst possible hemorrhagic on CT COMPARISON: CT abdomen and pelvis from 06/21/2018. TECHNIQUE: Transabdominal and transvaginal pelvic ultrasound was performed. FINDINGS: UTERUS: Measures 8.9 x 5.2 x 4.6 cm. Anteverted and enlarged. There is a 2.8 x 2.2 x 2.0 cm anterior wall intramural fibroid. ENDOMETRIUM: Measures 9.1 mm in diameter. Unremarkable. CERVIX: There are nabothian cysts in the cervix, the largest measures 1.9 x 2.0 x 0.9 cm. RIGHT OVARY: Measures 1.9 x 1.3 x 0.8 cm. No solid mass. Normal flow. LEFT OVARY: Not visualized. FREE FLUID: There is small amount of free fluid in the left adnexa. OTHER FINDINGS: None. IMPRESSION: The left ovary is not visualized. No adnexal mass or cyst. Small amount of free fluid in the pelvis is likely physiologic. 2.8 x 2.2 x 2.0 cm anterior wall intramural fibroid.
--- NOTE | 2018-06-23 16:44 | US ---
Date of service: 06/23/2018 PROCEDURE: Limited pelvic ultrasound HISTORY: repeat L adnexal pain, attempt to visualize L ovary COMPARISON: Pelvic ultrasound performed earlier the same day and CT abdomen and pelvis from 06/21/2018 TECHNIQUE: Transvaginal pelvic ultrasound was performed for evaluation of the left ovary and adnexa. FINDINGS: The left ovary measures 3.6 x 2.8 x 3.7 cm. There is a 2.2 x 1.5 x 2.1 cm complicated/hemorrhagic cyst. There is normal color and Doppler flow. No evidence for ovarian torsion. IMPRESSION: 2.2 x 1.5 x 2.1 cm complicated/hemorrhagic cyst in the left ovary. No evidence for torsion.
--- NOTE | 2018-06-23 16:48 | US ---
Date of service: 06/23/2018 PROCEDURE: Ultrasound of the Kidneys HISTORY: L flank pain COMPARISON: None available. TECHNIQUE: Sonogram of the kidneys. FINDINGS: RIGHT KIDNEY: Measures: 12.1 cm. Normal in size, contour and echogenicity. No stone, solid mass lesion or hydronephrosis visualized. LEFT KIDNEY: Measures: 12.3 cm. Normal in size, contour and echogenicity. No stone, solid mass lesion or hydronephrosis visualized. OTHER FINDINGS: The urinary bladder is partially decompressed. Bilateral ureteral jets are not visualized on color flow imaging. Incidentally noted is an inhomogeneous fatty liver. IMPRESSION: No hydronephrosis or nephrolithiasis.
--- NOTE | 2018-06-23 18:43 | ED PDOC ---
- Laboratory Results Result Diagrams: 06/23/18 11:30 06/23/18 11:30 - ECG O2 Sat by Pulse Oximetry: 100 (RA) Pulse Ox Interpretation: Normal Medical Decision Making Medical Decision Makin --Signed out to this provider pending imagining and reevaluation. 16:40 US COMPARISON: Pelvic ultrasound performed earlier the same day and CT abdomen and pelvis from 06/21/2018 TECHNIQUE: Transvaginal pelvic ultrasound was performed for evaluation of the left ovary and adnexa. FINDINGS: The left ovary measures 3.6 x 2.8 x 3.7 cm. There is a 2.2 x 1.5 x 2.1 cm complicated/hemorrhagic cyst. There is normal color and Doppler flow. No evidence for ovarian torsion. IMPRESSION: 2.2 x 1.5 x 2.1 cm complicated/hemorrhagic cyst in the left ovary. No evidence for torsion. 17:45 Renal US FINDINGS: RIGHT KIDNEY: Measures: 12.1 cm. Normal in size, contour and echogenicity. No stone, solid mass lesion or hydronephrosis visualized. LEFT KIDNEY: Measures: 12.3 cm. Normal in size, contour and echogenicity. No stone, solid mass lesion or hydronephrosis visualized. OTHER FINDINGS: The urinary bladder is partially decompressed. Bilateral ureteral jets are not visualized on color flow imaging. Incidentally noted is an inhomogeneous fatty liver. IMPRESSION: No hydronephrosis or nephrolithiasis. 1845 --Discussed results with patient at bedside. She is aware of results including blood in urine, anemia, elevated glucose and both US results including one that shows left hemorrhagic cyst. Explained the need for follow up with [facility] as outpatient. Advised Motrin for pain. she states she does feel somewhat better than before. Scribe Attestation: Documented by Tali Ruelas acting as a scribe for Brit Duff MD Provider Scribe Attestation: All medical record entries made by the Scribe were at my direction and personally dictated by me. I have reviewed the chart and agree that the record accurately reflects my personal performance of the history, physical exam, medical decision making, and the department course for this patient. I have also personally directed, reviewed, and agree with the discharge instructions and disposition. Disposition Counseled Patient/Family Regarding: Studies Performed, Diagnosis, Need For Followup - Clinical Impression Clinical Impression: Hemorrhagic cyst of left ovary, Microscopic hematuria - POA Present On Arrival: None - Disposition Referrals: [facility] [Outside] [facility] [Outside] Disposition: Routine/Home Disposition Time: 18:30 Condition: IMPROVED Additional Instructions: follow up with [facility] in 1-2 days take tylenol for the pain as needed return to the ED with any worsening or concerning symptoms Instructions: Blood in the Urine (Hematuria), Adult (DC), Ovarian Cyst (DC) Forms: [facility] (Faroese)
[2018-06-23 19:32] VITALS: BP 133/90; PULSE 88; RESP 19; TEMP 98.5
[2018-06-23 22:27] VITALS: O2SAT 100
== END 2018-06-23 19:11 | disposition home or self-care (01) ==
LOC: H.ER 10:46
DX: N83.202 Unspecified ovarian cyst, left side (principal); R31.29 Other microscopic hematuria; D25.1 Intramural leiomyoma of uterus; D64.9 Anemia, unspecified; E11.9 Type 2 diabetes mellitus without complications; I10 Essential (primary) hypertension; J45.909 Unspecified asthma, uncomplicated; R73.09 Other abnormal glucose
CPT/HCPCS: 76770; 76830; 76856; 80053; 81003; 81025; 83690; 84702; 85025; 87086; 96361; 96374; 99284; J1885; J7030

== ENCOUNTER 2018-08-08 09:46 | Day surgery (SDC) | payer OTHER ==
[2018-08-08 12:02] VITALS: BMI 32.5
[2018-08-08] MEDS ORDERED: Lactated Ringer's 500 ML IV ONE (12:10)
[2018-08-08 12:15] VITALS: TEMP 99.3; O2SAT 97
[2018-08-08] MEDS ORDERED: Propofol 10 mg/ml Inj (20 ML) ONE (12:50)
[2018-08-08] MEDS ORDERED: Midazolam 2 MG/2 ML VIAL ONE (12:50)
[2018-08-08 13:53] VITALS: BP 105/58; PULSE 88; RESP 16
== END 2018-08-08 14:30 | disposition home or self-care (01) ==
LOC: H.ENDO 09:46
PROVIDERS: ATTEND Internal Medicine Gastroenterology
DX: R10.84 Generalized abdominal pain (principal); I48.91 Unspecified atrial fibrillation; M19.90 Unspecified osteoarthritis, unspecified site; J45.909 Unspecified asthma, uncomplicated; E11.9 Type 2 diabetes mellitus without complications; I10 Essential (primary) hypertension; K64.8 Other hemorrhoids; K44.9 Diaphragmatic hernia without obstruction or gangrene; K31.89 Other diseases of stomach and duodenum
CPT/HCPCS: 43239; 45380; 82948; 88305; J2001; J2250; J2704; J7120